=== PATIENT | male | born 1960 | race Caucasian/White ===

== ENCOUNTER 2016-12-28 07:57 | Day surgery (SDC) | payer BC ==
--- NOTE | 2016-12-23 17:23 | HP ---
Chief Complaint - Chief Complaint Date of Service: 12/23/16 Chief Complaint: Screening colonoscopy History of Present Illness: This is a 56 year old male patient of Dr Bentley who is in need of a screening colonoscopy. No blood in his stools, BMs are daily and no family history of colon cancers. Does take probiotics and occasional Miralax, but does not seem to notice any changes. No weight loss.. No previous scopes. - Patient's Past Medical History Patient History - Medical: No pertinent hx Patient History - Cardiac/Respiratory: No pertinent hx Patient History - Cancer: No Hx of Cancer Patient History - Surgical Procedures: T & A - as child, Other - hand surgery, jaw wired shut for fracture - Family History Family History:: no untoward family reactions to anesthesia, no familial bleeding tendencies, no family history of clotting disorders - Family History Mother Family History - Medical: Other - TIA Father Family History - Medical: Family History - Cardiac/Respiratory: CVA/Stroke, Myocardial Infarction - Social History Living Situations: spouse Abuse History: No History of abuse Psych History: No pertinent hx Does anyone smoke in the home?: Yes Smoking Status: Current every day smoker - 1/2 ppd 40 years Have you smoked in the past 12 months: Yes Do you dip or chew tobacco: No Patient requests Smoking Cessation Consult: No Initiate information on Smoking Cessation: No Drug Use: none - Immunizations Immunizations Up to Date: Yes Hx Pneumococcal Vaccination: No History of Influenza Vaccine: No Review Of Systems (GEN) - Review of Systems Generalized/Overall Review: Absent: Weakness, Malaise, Weight gain EENTM: Absent: Blurred Vision, Double Vision, Throat Swelling Respiratory: Absent: Cough, Shortness of Breath, Wheezing Cardiac: Absent: Chest Pain, Edema, Palpitations Abdominal: Absent: Nausea, Vomiting, Abdominal Pain, Constipation, Diarrhea, Bright blood from rectum Genitourinary: Present: Nocturia. Absent: Burning, Frequency Musculoskeletal: Absent: Joint Pain, Back Pain, Joint Swelling, Neck Pain Neurological: Absent: Headache, Anxiety, Emotional Problems, Numbness Skin: Present: No Symptoms Reported Endocrine: Present: No Symptoms Reported Allergies/Adverse Reactions: Allergies Allergy/AdvReac Type Severity Reaction Status Date / Time No Known Allergies Allergy Unverified 03/01/14 15:47 Home Medications: HOME MEDICATIONS Probiotic 2 tab PO DAILY 12/24/16 [Last Taken Unknown] Exam - Exam Vital Signs: Vital Signs - Last Taken Temp 36.0 12/23/2016 Pulse 75 Resp 15 BP 130/78 12/23/2016 Pulse Ox Ht 188cm Wt 97kg Constitutional: Present: Alert, Oriented x3, Cooperative, Well developed, No distress ENT Exam: Present: normal ENT inspection, hearing grossly normal, pharynx normal Eye Exam: bilateral eye: normal inspection Neck: Present: non-tender, full range of motion Back Exam: Present: normal inspection Respiratory: Present: chest non-tender, lungs clear, normal breath sounds, no respiratory distress Cardiovascular/Chest: Present: regular rate, rhythm, no chest tenderness, no edema, no murmur Abdomen: Present: Normal bowel sounds, soft, nontender /Rectal: Present: Exam deferred Extremity: Present: normal range of motion, normal inspection Skin Exam: Present: normal color Neurologic: Present: alert, normal mood/affect, oriented x 3. Absent: abnormal gait, aphasia, facial droop, motor weakness, sensory deficit, depressed affect Appearance: Present: appropriate appearance, appropriate insight, neat, no memory impairment Eye contact: Present: cooperative, good eye contact, normal speech Thoughts: Present: normal thought pattern, no apparent hallucination, normal mood /affect Assessment/Plan - Narrative Narrative: Pt in need of screening colonoscopy Otherwise healthy male . ASA 2 (smoker) and agrees to the procedure. Scheduled and prep discussed. [facility]IC discussed for colonoscopy with possible biopsy and or polypectomy. - Assessment/Plan (1) Screening for colon cancer Problem: Acute (2) Smoker unmotivated to quit Problem: Chronic
[~2016-12-28 07:57] MED LIST: RINGERS SOLUTION,LACTATED 1,000 ML IV PRN
[2016-12-28] MEDS ORDERED: RINGERS SOLUTION,LACTATED 1,000 ML IV ONE (08:45)
[2016-12-28 10:26] VITALS: BP 107/71
--- NOTE | 2016-12-28 15:56 | OR ---
Operative Report - Dictated Report Narrative: DATE OF PROCEDURE:12/28/2016 PREOPERATIVE DIAGNOSIS: #1 Screening colonoscopy POSTOPERATIVE DIAGNOSIS: #1 Screening colonoscopy #2 polyp at 30 cm pending final pathology #3 scattered sigmoid diverticulosis OPERATION: Colonoscopy with cold snare polypectomy SURGEON: Phillip Griffiths M.D. FACS ANESTHESIA : Lissett Jaimes CRNA sedation INDICATIONS: This is 56 year old male who presents for a screening colonoscopy. I have discussed the risks, benefits, indications, and contraindications for colonoscopy with the possibility of biopsy and/or polypectomy. He understands, agrees, and wishes to proceed. He has undergone a SUPREP and has tolerated it well. PROCEDURE: The patient was brought to the operating theater and placed into the left lateral decubitus position. The patient underwent sedation per anesthesia , and a digital rectal exam was performed. This was noted to be unremarkable. The patient was noted to have no internal or external hemorrhoids. The Olympus video colonoscope was introduced and advanced into the rectum. The rectum was normal in appearance. The scope was then advanced through the sigmoid, where some scattered diverticular disease was noted. The scope was then advanced to the cecum using standard reduction techniques. The appendiceal orifice was noted. The ileocecal valve was noted. The prep appeared to be excellent with a Lankin prep score of 9. The scope was withdrawn slowly as the ascending, transverse, descending, and sigmoid colon were examined in a circumferential fashion. At 30 cm, a small flat less than 1 cm polyp was noted. Picture was taken. It was removed with the cold snare and suctioned via the polyp trap and retrieved. The scope was brought back into the rectum where it was retroflexed in the lower rectum was examined. The air was decompressed, and the scope was then removed. Withdrawal time was 10 minutes. POSTOPERATIVE CONDITION: The patient was awakened and taken to the ambulatory surgery center in good condition. No complications were encountered. FINDINGS: Diverticulosis of sigmoid colon, small polyp at 30 cm. Specimens: 1 EBL: 0 The findings were discussed with the patient and his . I recommend a follow -up colonoscopy in 5 years for screening purposes depending on the pathology report. Diverticulosis booklet was reviewed and given to the patient. We will call in 48 hours with the biopsy results. And also back slowly as I
== END 2016-12-28 07:58 | disposition home or self-care (01) ==
LOC: AMB 07:57
PROVIDERS: ATTEND Surgery
PROC: 0DBE8ZX Excision of Large Intestine, Via Natural or Artificial Opening Endoscopic, Diagnostic (ICD-10-PCS; principal; 2016-12-28 09:00)
DX: Z12.11 Encounter for screening for malignant neoplasm of colon (principal); K57.30 Diverticulosis of large intestine without perforation or abscess without bleeding; F17.200 Nicotine dependence, unspecified, uncomplicated; Z68.27 Body mass index [BMI] 27.0-27.9, adult